=== PATIENT | female | born 1985 | race Caucasian/White ===

== ENCOUNTER 2021-05-28 10:44 | Inpatient (IN) | payer OTHER ==
[~2021-05-28] VITALS: Ht 177.8 cm; Wt 89.4 kg
[2021-05-28 10:50] VITALS: BP 123/63
[2021-05-28 11:32] LABS: ABSOLUTE NEUTROPHILS 14.6 thou/uL (1.4-8.2); BASOPHILS 0.2 % (0.0-2.0); EOSINOPHILS 0.3 % (0.0-3.0); HEMATOCRIT 35.6 % (37.0-47.0); HEMOGLOBIN 11.9 gm/dL (12.0-15.0); LYMPHOCYTES 9.8 % (24.0-44.0); MCH 25.9 pg (26.0-34.0); MCHC 33.3 g/dL (28.0-37.0); MCV 77.8 fL (80.0-100.0); MONOCYTES 7.4 % (1.0-8.0); PLATELET COUNT 330 thou/uL (150-400); POLYS 82.3 % (36.0-66.0); RBC 4.57 mil/uL (4.20-5.00); RDW 13.5 % (10.5-14.5); WBC 17.8 thou/uL (4.0-11.0)
[2021-05-28 11:35] LABS: CALCIUM 8.8 mg/dL (8.5-10.1); CREATININE 1.1 mg/dL (0.6-1.0); POTASSIUM 3.1 mmol/L (3.5-5.1)
[2021-05-28 11:45] LABS: TOTAL BILIRUBIN 0.5 mg/dL (0.2-1.0); TOTAL PROTEIN 7.4 g/dL (6.4-8.2)
[2021-05-28 12:38] LABS: URINE BILIRUBIN NEGATIVE (Negative); URINE BLOOD 1+ (Negative); URINE CLARITY CLEAR; URINE COLOR YELLOW; URINE GLUCOSE-RANDOM* 3+ (Negative); URINE KETONES NEGATIVE (Negative); URINE LEUKOCYTES-REFLEX 1+ (Negative); URINE NITRITE-REFLEX NEGATIVE (Negative); URINE PROTEIN (DIPSTICK) NEGATIVE (Negative); URINE SPECIFIC GRAVITY <= 1.005 (1.005-1.035)
[2021-05-28 13:46] LABS: BACTERIA-REFLEX >30 Many /HPF (None Seen); SQUAMOUS 4-10 Moderate /LPF (0-3); URINE RBC 1-2 Rare /HPF (NONE SEEN); URINE WBC-REFLEX 6-15 Few /HPF (0-5); WBC CLUMPS Few (None Seen)
--- NOTE | 2021-05-28 15:10 | EKG ---
[place] [address] [email or web address] [email or web address] [address] ELECTROCARDIOGRAM REPORT Name: ROYAL OMER [facility] [id number] Admission: 05/28/21 Attend Phys: Discharge: Date of : 85 Report #: [id number] [facility] ED Test Date: 2021-05-28 Test Time: 11:13:09 Pat Name: ROYAL OMER Department: Room: Gender: F Art Consultant: CHRISTINE : 1985 Requested By: Juan David Jaime Order Number: [id number] MD: Aleks Carr Measurements Intervals [place] Rate: 89 P: 36 OR: 142 QRS: 74 QRSD: 95 T: 3 QT: 374 QTc: 456 Interpretive Statements Sinus rhythm Borderline T wave abnormalities Baseline wander in lead(s) II,III,aVL,aVF,V1,V2,V3,V4,V5,V6 No previous ECG available for comparison Electronically Signed On 05-28-2021 15:10:06 CDT by Aleks Carr [email or web address] <ELECTRONICALLY SIGNED> By: Aleks Carr MD, [facility] 05/28/21 1510 12 12 Aleks Carr MD, FACC /EPI
[2021-05-28 20:44] VITALS: BP 117/84
[2021-05-28 21:10] VITALS: BP 117/84
[2021-05-28 21:38] VITALS: BP 135/91
--- NOTE | 2021-05-29 01:00 | NUR ---
PT ADMIT WITH UTI AND PNEUMONIA. C/O CHEST PAIN WITH DEEP INSPIRATION-GETTING TYLENOL FOR HEADACHE. UP AD TONI IN ROOM.IVF INFUSING.ON ROOM AIR-DOING OK.SURGERY CONSULTED THIS AM BY SONYA (US).
[2021-05-29 04:00] VITALS: BP 143/88
[2021-05-29 06:01] LABS: HEMOGLOBIN 10.1 gm/dL (12.0-15.0); MCH 26.1 pg (26.0-34.0); MCHC 33.5 g/dL (28.0-37.0); MCV 77.8 fL (80.0-100.0); RBC 3.86 mil/uL (4.20-5.00); RDW 13.3 % (10.5-14.5); WBC 13.4 thou/uL (4.0-11.0)
[2021-05-29 06:26] LABS: CALCIUM 8.2 mg/dL (8.5-10.1); MAGNESIUM 1.7 mg/dL (1.8-2.4); POTASSIUM 3.3 mmol/L (3.5-5.1)
--- NOTE | 2021-05-29 08:33 | NUR ---
ASSESSMENT: CM REVIEWED CHART AND SPOKE WITH PATIENT AT THE BEDSIDE. PT IS ALERT AND ORIENTED X4. PT WAS ADMITTED WITH POSSIBLE PYLEONEPHRITIS CONCERNS FOR SEPSIS. PT REPORTS THAT SHE LIVES [place] WITH HER . PT REPORTS BEING FULLY INDEPENDENT WITH ADLS AND AMBULATION. PT REPORTS SHE DOES NOT HAVE ANY HX OF HH. PT REPORTS HER PCP IS THROUGH . CM DISCUSSED ROLE. PT DOES NOT ANTICIPATE HAVING ANY NEEDS FROM CM PRIOR TO DISCHARGE. PT REMAINS ON IV FLUIDS AND IV ANBX AT THIS TIME.
[2021-05-29 08:37] VITALS: BP 139/93
--- NOTE | 2021-05-29 11:23 | NUR ---
ASSUMED PT CARE THIS AM. PT IS ALERT & ORIENTED X4. PT HAS IV SITE ON L AC RUNNING NS @125. PT IS UP AD TONI. PT IS ACCUCHECK ACHS AND HAS INSULIN PUMP. PT IS ON ROOM AIR. PT C/O OF HEADACHE AND GIVEN TYLENOL. PT AT THE BEDSIDE. WILL CONTINUE TO MONITOR PT. FOLLOW POC.
[2021-05-29 15:46] VITALS: BP 137/92
[2021-05-29 20:03] VITALS: BP 133/87
--- NOTE | 2021-05-30 03:14 | NUR ---
Assumed care of pt at 1900. bedside report recived. family member at bedside. pt up ad kourtney. LYNN assessment complete. pt has continuous ivf running at 125 ml/hr per order. Pt has insulin pump, so no achs sliding scale insulin was utilized. around 2199 pts bs was 192. last bm was earlier today gave pt new linens and new gown. refilled ice water. all needs met, call light in reach.
--- NOTE | 2021-05-30 10:17 | NUR ---
ASSUMED PT CARE THIS AM. PT IS ALERT & ORIENTED X4. PT HAS IV SITE ON R HAND. PT IS UP AD TONI. PT IS ACCUCHECK ACHS AND HAS INSULIN PUMP. PT C/O HEADACHE AND NAUSEA AND GIVEN MEDICATIONS PER PT REQUEST. PT TOLERATED MEDICATION AND DIET WELL. WILL CONTINUE TO MONITOR PT. FOLLOW POC.
[2021-05-30 16:45] VITALS: BP 136/82
[2021-05-30 19:15] VITALS: BP 141/91
--- NOTE | 2021-05-31 04:29 | NUR ---
PT C/O PAIN TO HER HEAD,MANAGED WITH MED.PT UP ADLIB IN HER ROOM.PT NPO SINCE KS FOR HER PROCEDURE LATER IN THE DAY.PT ABLE TO MAKE HER NEEDS KNOWN.CALL LIGHT WITHIN.
[2021-05-31 04:38] VITALS: BP 131/82
[2021-05-31 06:13] LABS: HEMATOCRIT 29.9 % (37.0-47.0); HEMOGLOBIN 10.1 gm/dL (12.0-15.0); MCH 26.5 pg (26.0-34.0); MCHC 33.8 g/dL (28.0-37.0); MCV 78.2 fL (80.0-100.0); RBC 3.82 mil/uL (4.20-5.00); RDW 13.3 % (10.5-14.5)
[2021-05-31 07:30] VITALS: BP 150/92
--- NOTE | 2021-05-31 10:21 | NUR ---
ASSUMED PT CARE THIS AM. PT IS ALERT & ORIENTED X4. PT HAS IV SITE ON LAC. PT IS UP AD TONI. PT IS ACCUCHECK ACHS AND HAS INSULIN PUMP. PT IS ON ROOM AIR. PT AT THE BEDSIDE. PT IS CURRENTLY HAVING SURGERY. WILL CONTINUE TO MONITOR PT. FOLLOW POC.
[2021-05-31 12:55] VITALS: BP 149/80
--- NOTE | 2021-05-31 13:34 | NUR ---
ON-GOING ASSESSMENT: PT IS HAVING LAP ALINE TODAY. PT ANTICIPATES DISCHARGING HOME WITH HER FAMILYS ASSIST ONCE STABLE AND DOES NOT ANTICIPATE ANY NEEDS FROM CM. CM WILL CONTINUE TO FOLLOW.
[2021-05-31 15:39] VITALS: BP 140/88
[2021-05-31 20:00] VITALS: BP 140/79
--- NOTE | 2021-06-01 02:28 | NUR ---
ASSUMED CARE OF PT AT 1900. BEDSIDE REPORT RECIEVED. LYNN ASSESSMENT COMPLETE. PT C/O 11/08 DISCOMFORT. PRN TYLENOL ADMINSITERED C OTHER SCHEDULED MEDS. PT HAS LLQ INSULIN PUMP. D/T PT HAVING TO CHANGE OUT PUMP, REQUESTED 4 UNITS OF HUMALOG WHICH WAS ADMINISTERED. PT S/P LAPCHOLY C 4 INCISION SITES C STERISTRIPS. CDI. CONTINOUS IVF RUNNING PER NOV THROUGH R HAND PIV. REFILLED PTS ICE PACK. PT DENIES ANY OTHER NEEDS AT THIS TIME, CALL LIGHT IN REACH
[2021-06-01 02:50] VITALS: BP 146/83
[2021-06-01 07:57] VITALS: BP 154/93
[2021-06-01] MEDS ORDERED: CEFUROXIME500 MG PO (09:19)
[2021-06-01] MEDS ORDERED: NORCO5 PO (09:19)
--- NOTE | 2021-06-01 10:08 | NUR ---
Patient a/o x 4. Room air. AD TONI. No complaints of pain. Very eager and happy to go home. Nurse D/C'd ANTONIO, appiled gsu dietz. Nurse went over discharge teaching with patient and her father at bedside. 2 Medication scripts given. Patient had no questions. She wanted to walk out without wheelchair.
--- NOTE | 2021-06-03 18:23 | O ---
[facility] [place] [address] [place] [address] OPERATIVE REPORT Name: ROYAL OMER Room #: 448-P [facility] IN M.R.#: [id number] Admission: 05/28/21 Attend Phys: Stephanie Hernandez Discharge: 06/01/21 Date of : 85 Report #: [id number] THIS REPORT FOR: cc: [facility] - Clinic physician unknown [facility] - Clinic physician unknown Julien Hickey MD ~ DATE OF SERVICE: 05/31/2021 PREOPERATIVE DIAGNOSIS: Acalculous cholecystitis. POSTOPERATIVE DIAGNOSIS: Acalculous cholecystitis. OPERATION: Laparoscopic cholecystectomy. SURGEON: Julien Hickey MD ANESTHESIA: General. ESTIMATED BLOOD LOSS: Minimal. SPECIMENS: Gallbladder. DESCRIPTION OF PROCEDURE: After informed consent was obtained, the patient was brought to the operating room and placed supine. SCDs were placed and working, preoperative antibiotics were administered, general anesthesia was induced. The abdomen was prepped and draped in the usual sterile fashion. A 10 mm incision was made below the umbilicus. Fascia was incised and a trocar was placed. Pneumoperitoneum was established. Three right upper quadrant 5 mm ports were placed. Gallbladder was grasped at the fundus and retracted cephalad. Infundibulum was grasped and retracted laterally. I dissected out the cystic duct and the cystic artery. The cystic plate was fully identified. Cystic duct and artery were clipped and ligated leaving 2 clips on the remaining duct and one clip on the remaining artery. Gallbladder was then taken off the liver bed with electrocautery. It was placed into an Endopouch and removed. The fascia was then closed with a [id number] 0 Vicryl. Skin was closed with 4-0 Monocryl. Incisions were dressed with Steri-Strips. COMPLICATIONS: None. DISPOSITION: The patient was taken to recovery in satisfactory condition. <ELECTRONICALLY SIGNED> By: Julien Hickey MD 06/03/21 1823 1019 1027 Julien Hickey MD /nt
--- NOTE | 2021-06-05 18:06 | PATH ---
[facility] [address] [place] [address] PATHOLOGY RPT PROCEDURE Name: ROYAL OMER Room #: 448-P [facility] IN M.R.#: [id number] Admission: 05/28/21 Date of : 85 Discharge: 06/01/21 Report #: [id number] Path Case #: [id number] [facility] Accession Number: [id number] . 01 Material submitted: . gallbladder - GALLBLADDER . 01 Clinical history: . LAPAROSCOPIC CHOLECYSTECTOMY ACALCULOUS CHOLECYSTITIS SEPSIS, UTI, MULTIFOCAL PNA . 02 Diagnosis: Gallbladder, cholecystectomy: - Mild chronic cholecystitis. - Cholesterol polyps. (IUV:yard assistant; 06/05/2021) [facility] 06/05/2021 [facility]9 Local . 02 Electronically signed: . Saniya Watt MD, Pathologist NPI- [id number] . 01 Gross description: . Fixative: Formalin Labeled: Gallbladder Specimen received: Intact gallbladder Dimensions: 8.5 x 2.2 x 1.0 cm Serosa: light brice-gilbert Lymph node: None identified Mucosa: Velvety and bile-stained with possible polyps near both body and fundus measuring up to 0.2 cm Average wall thickness: Up to 0.2 cm Calculi: None identified Abnormalities: Possible polyps . A1- Hoop Maker body, fundus, cystic duct margin, and possible polyps. ([facility]; [facility] 06/01/2021 1117 Local . 02 Pathologist provided ICD-10: K81.1, K82.4 . 02 CPT . 649163 Specimen Comment: A courtesy copy of this report has been sent to [phone], [phone] [address] PATHOLOGY RPT PROCEDURE Name: ROYAL OMER Room #: 448-P [facility] IN M.R.#: [id number] Admission: 05/28/21 Date of : 85 Discharge: 06/01/21 Report #: [id number] Path Case #: [id number] Specimen Comment: [id number] Specimen Comment: Report sent to / DR REYES Performed at: 01 [facility] [address], [place] [id number] MD Louis Pitt MD Phone: [phone] Performed at: [address] [facility] [address] [id number] MD Saniya Watt MD Phone: [phone]
== END 2021-06-01 10:43 | disposition home or self-care (01) | DRG 853 ==
LOC: ER 10:44 → 4S 17:09 → EROBS 17:09 → 4S 21:10
PROVIDERS: Emergency Medicine; Nurse Practitioner; ADMIT Hospitalist; ATTEND Hospitalist
PROC: 0FT44ZZ Resection of Gallbladder, Percutaneous Endoscopic Approach (ICD-10-PCS; principal; 2021-05-31)
DX: A41.9 Sepsis, unspecified organism (principal); J18.9 Pneumonia, unspecified organism; N10 Acute pyelonephritis; E10.9 Type 1 diabetes mellitus without complications; R74.01 Elevation of levels of liver transaminase levels; G62.9 Polyneuropathy, unspecified; K81.9 Cholecystitis, unspecified; B96.20 Unspecified Escherichia coli [E. coli] as the cause of diseases classified elsewhere; Z20.822 Contact with and (suspected) exposure to COVID-19; Z85.3 Personal history of malignant neoplasm of breast; Z79.899 Other long term (current) drug therapy
CPT/HCPCS: 10100; 10195; 50010; 50101; 50411; 50555; 51489; 52265; 52266; 53307; 53312; 53314; 55245; 56462; 56525; 56526; 58574; 62110; 62900; 70005